=== PATIENT | female | born 1995 | race Caucasian/White ===

== ENCOUNTER 2016-12-16 21:19 | Emergency (ER) | payer OTHER ==
--- NOTE | 2016-12-16 21:41 | CPEKG ---
Heart Rate: 67 RR Interval: 896 P-R Interval: 164 QRSD Interval: 90 QT Interval: 404 QTC Interval: 427 P [place]: 53 QRS [place]: 73 T Wave [place]: 16 EKG Severity - NORMAL ECG - EKG Impression: SINUS RHYTHM Electronically Signed By: Oumou Yoo 16-Dec-2016 22:04:02
--- NOTE | 2016-12-16 22:15 | EDPHY ---
H & P Stated Complaint: c/o mid sternal/upper abd pain x 1 day Time Seen by Provider: 12/16/16 22:04 HPI/ROS: CHIEF COMPLAINT: Left-sided chest pain x1 day HISTORY OF PRESENT ILLNESS: 21-year-old female history of oral contraceptive use , no history of illicit drug use, nonsmoker, complaining of 1 day of pleuritic left-sided chest pain described as sharp, stabbing, intermittent, not necessarily associated with exertional activity. No radiation. No dyspnea. No nausea. No vomiting. No immobilization. No trauma. No long distance travel. No peripheral edema or discoloration or cramping. PRIMARY CARE PROVIDER: [facility] REVIEW OF SYSTEMS: A ten point review of systems was performed and is negative with the exception of the items mentioned in the HPI PAST MEDICAL & SURGICAL HISTORY: No pertinent medical or surgical history SOCIAL HISTORY: Nonsmoker. No illicit drug use. No cocaine use. FAMILY HISTORY: No family history of premature coronary artery disease or unexpected sudden PHYSICAL EXAM (Prior to examination, patient consented to physical exam, hands were washed and my usual and customary physical exam procedures followed) 1) GENERAL: Well-developed, well-nourished, alert and oriented. Appears to be in no acute distress. 2) HEAD: Normocephalic, atraumatic 3) HEENT: Pupils equal, round, reactive to light bilaterally. Sclera anicteric. Nasopharynx, oropharynx, clear, no lesions. Ears bilaterally with normal tympanic membranes. 4) NECK: Full range of motion, no meningeal signs.No bruit. 5) LUNGS: Clear auscultation bilaterally, no wheezes, no rhonchi, no retractions. 6) HEART: Regular rate and rhythm, no murmur, no heave, no gallop. 7) ABDOMEN: No guarding, no rebound, no focal tenderness, 8) MUSCULOSKELETAL: Moving all extremities, no focal areas of tenderness, no obvious trauma. No peripheral edema or discoloration. Negative Homans no palpable cord 9) BACK: No CVA tenderness. 10) SKIN: No rash, no petechiae. 11) Psychiatric: Patient is oriented X 3, there is no agitation. DIFFERENTIAL DIAGNOSIS: in no particular include but limited to pulmonary embolus, MS, chest wall pain - Medical/Surgical History Hx Asthma: No Hx Chronic Respiratory Disease: No Hx Diabetes: No Hx Cardiac Disease: No Hx Renal Disease: No Hx Cirrhosis: No Hx Alcoholism: No Hx HIV/AIDS: No Hx Splenectomy or Spleen Trauma: No Other PMH: hypoactive thyroid, migraines, foot/elbow surgery,. Minor Mitral valve prolapse age ?5-7 - Social History Smoking Status: Never smoked Constitutional: Initial Vital Signs Temperature (C) 37 C 12/16/16 21:21 Heart Rate 67 12/16/16 21:21 Respiratory Rate 16 12/16/16 21:21 Blood Pressure 142/95 H 12/16/16 21:21 O2 Sat (%) 98 12/16/16 21:21 O2 Delivery Mode Room Air Allergies/Adverse Reactions: No Known Allergies Allergy (Verified 12/16/16 21:24) Home Medications: Medication Instructions Recorded Bcp 06/10/11 Levothyroxine 11/20/14 Fever Few 12/16/16 Medical Decision Making - Diagnostics Imaging Results: Imaging Impressions Chest X-Ray 12/16/16 22:05 Impression: Normal chest x-ray. Images reviewed by myself ED Course/Re-evaluation: 11:30 p.m.: Re-evaluation with serial exams. She appears well, she is laughing with her friend. I discussed case Dr. Nando Vazquez in the ER. She is not tachycardic, not tachypneic, has a normal sinus EKG, negative troponin, negative chest x-ray, negative D-dimer. I think that pulmonary embolus, MS, less than likely in this patient at this time. I do not think that further diagnostic studies are definitively indicated. I do not think that admission or emergent cardiology consultation is indicated. I recommend she follow up with her primary care provider in the next 1-2 days and provided her with my usual customary chest pain precautions instructions. - Data Points Laboratory Results: Laboratory Results 12/16/16 22:00 12/16/16 22:00 12/16/16 12/16/16 12/16/16 22:00 22:00 22:00 WBC 6.87 10^3/uL 10^3/uL (3.80-9.50) RBC 4.69 10^6/uL 10^6/uL (4.18-5.33) Hgb 14.9 g/dL g/dL (12.6-16.3) Hct 43.7 % % (38.0-47.0) MCV 93.2 fL fL (81.5-99.8) MCH 31.8 pg pg (27.9-34.1) MCHC 34.1 g/dL g/dL (32.4-36.7) RDW 11.9 % % (11.5-15.2) Plt Count 330 10^3/uL 10^3/uL (150-400) MPV 9.7 fL fL (8.7-11.7) Neut % (Auto) 51.3 % % (39.3-74.2) Lymph % (Auto) 41.2 % % (15.0-45.0) [place] % (Auto) 4.9 % % (4.5-13.0) Eos % (Auto) 2.2 % % (0.6-7.6) Baso % (Auto) 0.3 % % (0.3-1.7) Nucleat RBC Rel Count 0.0 % % (0.0-0.2) Absolute Neuts (auto) 3.52 10^3/uL 10^3/uL (1.70-6.50) Absolute Lymphs (auto) 2.83 10^3/uL 10^3/uL (1.00-3.00) Absolute Monos (auto) 0.34 10^3/uL 10^3/uL (0.30-0.80) Absolute Eos (auto) 0.15 10^3/uL 10^3/uL (0.03-0.40) Absolute Basos (auto) 0.02 10^3/uL 10^3/uL (0.02-0.10) Absolute Nucleated RBC 0.00 10^3/uL 10^3/uL (0-0.01) Immature Gran % 0.1 % % (0.0-1.1) Immature Gran # 0.01 10^3/uL 10^3/uL (0.00-0.10) D-Dimer Sodium 139 mEq/L mEq/L (134-144) Potassium 3.9 mEq/L mEq/L (3.5-5.2) Chloride 105 mEq/L mEq/L (97-110) Carbon Dioxide 23 mEq/l mEq/l (22-31) Anion Gap 11 mEq/L mEq/L (8-16) BUN 15 mg/dL mg/dL (7-23) Creatinine 0.7 mg/dL mg/dL (0.6-1.0) Estimated GFR > 60 Glucose 106 mg/dL H mg/dL (70-100) Calcium 9.6 mg/dL mg/dL (8.5-10.4) Troponin I < 0.012 ng/mL ng/mL (0-0.034) Beta HCG, Qual NEGATIVE 12/16/16 22:00 WBC RBC Hgb Hct MCV MCH MCHC RDW Plt Count MPV Neut % (Auto) Lymph % (Auto) [place] % (Auto) Eos % (Auto) Baso % (Auto) Nucleat RBC Rel Count Absolute Neuts (auto) Absolute Lymphs (auto) Absolute Monos (auto) Absolute Eos (auto) Absolute Basos (auto) Absolute Nucleated RBC Immature Gran % Immature Gran # D-Dimer < 0.27 ug/mLFEU ug/mLFEU (0.00-0.50) Sodium Potassium Chloride Carbon Dioxide Anion Gap BUN Creatinine Estimated GFR Glucose Calcium Troponin I Beta HCG, Qual Departure - Departure Disposition: Home, Routine, Self-Care Clinical Impression: Chest pain Qualifiers: Chest pain type: other chest pain Qualified Code(s): R07.89 - Other chest pain Condition: Good Instructions: Chest Pain (ED) Additional Instructions: Call 911 if you develop new or worsening chest pain, if you develop dizziness, feeling that you may pass out or any other symptoms that concern you Referrals: Svetlana Lombardi MD [Primary Care Provider] - 1-2 days without fail Jean Dove MD [Medical Doctor] - 2-3 days, call for appt. (Dr Dove is a petroleum engineering teacher)
[2016-12-16 22:25] LABS: % IMMATURE GRANULYOCYTES 0.1 % (0.0-1.1); ABSOLUTE IMMATURE GRANULOCYTES 0.01 10^3/uL (0.00-0.10); ADD DIFF? NO; ADD MORPH? NO; ADD SCAN? NO; ATYPICAL LYMPHOCYTE FLAG 0 (0-99); FRAGMENT RBC FLAG 0 (0-99); HEMATOCRIT 43.7 % (38.0-47.0); HEMOGLOBIN 14.9 g/dL (12.6-16.3); LEFT SHIFT FLG 0 (0-99); LIPEMIA HEMOLYSIS FLAG 90 (0-99); MEAN CELL HEMOGLOBIN 31.8 pg (27.9-34.1); MEAN CELL HEMOGLOBIN CONCENTR. 34.1 g/dL (32.4-36.7); MEAN CELL VOLUME 93.2 fL (81.5-99.8); MEAN PLATELET VOLUME 9.7 fL (8.7-11.7); PLATELET CLUMPS FLAG 20 (0-99); PLATELET COUNT 330 10^3/uL (150-400); RED BLOOD CELL COUNT 4.69 10^6/uL (4.18-5.33); RED CELL DISTRIBUTION WIDTH 11.9 % (11.5-15.2)
[2016-12-16 22:33] LABS: ANION GAP 11 mEq/L (8-16); CALCIUM 9.6 mg/dL (8.5-10.4); CARBON DIOXIDE 23 mEq/l (22-31); CHLORIDE 105 mEq/L (97-110); CREATININE 0.7 mg/dL (0.6-1.0); GLOMERULAR FILTRATION RATE > 60; GLUCOSE 106 mg/dL (70-100); POTASSIUM 3.9 mEq/L (3.5-5.2); SODIUM 139 mEq/L (134-144)
[2016-12-16 22:43] LABS: TROPONIN I < 0.012 ng/mL (0-0.034)
[2016-12-16 23:16] VITALS: O2SAT 96
[2016-12-16] MEDS ORDERED: OXYCODONE/APAP 5/325 TAB PO ONE (23:39)
[2016-12-16] MEDS ORDERED: IBUPROFEN 200 MG TAB PO ONE (23:39)
[2016-12-16] MEDS ORDERED: HYDROCOD/APAP 5/325 PREPACK#6 BTL TAKEHOME ONE (23:41)
[2016-12-17 00:12] VITALS: BP 135/79; PULSE 75; RESP 16; TEMP 98.2
== END 2016-12-17 00:12 | disposition home or self-care (01) ==
DX: R07.89 Other chest pain (principal)